=== PATIENT | female | born 1970 | race African-American/Black ===

== ENCOUNTER 2020-05-15 19:37 | Emergency (ER) | payer OTHER ==
[~2020-05-15] VITALS: Ht 149.9 cm; Wt 81.7 kg
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
[~2020-05-15 19:37] MED LIST: ALBUTEROL2.5 MG/0.5 INH; IBUPROFEN 600600 M1 PO; VENTOLIN HFA 1818 GM INH
[2020-05-15 20:33] LABS: ABSOLUTE NEUTROPHILS 3.5 thou/uL (1.4-8.2); BASOPHILS 0.8 % (0.0-2.0); EOSINOPHILS 4.1 % (0.0-3.0); HEMATOCRIT 42.3 % (37.0-47.0); HEMOGLOBIN 13.5 gm/dL (12.0-15.0); LYMPHOCYTES 31.7 % (24.0-44.0); MCH 29.8 pg (26.0-34.0); MCHC 32.1 g/dL (28.0-37.0); MCV 92.8 fL (80.0-100.0); MONOCYTES 5.1 % (1.0-8.0); PLATELET COUNT 269 thou/uL (150-400); POLYS 58.3 % (36.0-66.0); RBC 4.55 mil/uL (4.20-5.00); WBC 5.9 thou/uL (4.0-11.0)
[2020-05-15 20:40] LABS: ANION GAP 10 mmol/L (7-16); BUN 13 mg/dL (7-18); CALCIUM 8.9 mg/dL (8.5-10.1); CHLORIDE 106 mmol/L (98-107); CO2 25 mmol/L (21-32); CREATININE 1.1 mg/dL (0.6-1.0); GLUCOSE 112 mg/dL (74-106); POTASSIUM 3.5 mmol/L (3.5-5.1); SODIUM 141 mmol/L (136-145)
[2020-05-15 20:50] LABS: ALBUMIN 4.1 g/dL (3.4-5.0); SGOT 66 U/L (15-37); SGPT 50 U/L (14-59); TOTAL BILIRUBIN 0.4 mg/dL (0.2-1.0); TOTAL PROTEIN 8.1 g/dL (6.4-8.2); TROPONIN-I <0.06 ng/mL (<0.06)
[2020-05-15] MEDS ORDERED: MOBIC7.5 MG PO (23:13)
[2020-05-15] MEDS ORDERED: DOXYCYCLINE 10100 MG PO (23:13)
[2020-05-15] MEDS ORDERED: PREDNISONE 20 M20 MG PO (23:13)
[2020-05-15 23:21] VITALS: BP 128/79
--- NOTE | 2020-05-16 07:41 | EKG ---
[place] [address] [employer] [place] [address] ELECTROCARDIOGRAM REPORT Name: MARC AGUILAR [id number] Admission: 05/15/20 Attend Phys: Discharge: 05/15/20 Date of : 74 Report #: [id number] [facility] ED Test Date: 2020-05-15 Test Time: 20:21:22 Pat Name: MARC AGUILAR Department: Room: Gender: F Line Runner: JAIMIE : 1970 Requested By: Senia Madrigal Order Number: [id number] MD: Bhanu Paniagua Measurements Intervals [place] Rate: 105 P: 70 KS: 154 QRS: 54 QRSD: 109 T: -15 QT: 345 QTc: 457 Interpretive Statements Sinus tachycardia Multiple ventricular premature complexes Nonspecific ST and T wave abnormality Compared to ECG 09/05/2015 20:37:18 Ventricular premature complex(es) now present ST and T wave abnormality is new Electronically Signed On 05-16-2020 7:41:23 LICENSED OPTICAL DISPENSER by Bhanu Paniagua [email or web address] <ELECTRONICALLY SIGNED> By: Bhanu Paniagua MD, [facility] [id number] 20 20 Bhanu Paniagua MD, [facility] /EPI
== END 2020-05-15 23:41 | disposition home or self-care (01) ==
LOC: ER 19:37
PROVIDERS: Physician Assistant
DX: R07.89 Other chest pain (principal); J45.901 Unspecified asthma with (acute) exacerbation; Z79.899 Other long term (current) drug therapy; Z88.8 Allergy status to other drugs, medicaments and biological substances; Z91.018 Allergy to other foods; V49.9XXA Car occupant (driver) (passenger) injured in unspecified traffic accident, initial encounter; Y93.89 Activity, other specified; Y92.488 Other paved roadways as the place of occurrence of the external cause; Y99.8 Other external cause status

== ENCOUNTER 2021-06-19 19:34 | Emergency (ER) | payer OTHER ==
[~2021-06-19] VITALS: Ht 165.1 cm; Wt 99.8 kg
[~2021-06-19 19:34] MED LIST changes: +DOXYCYCLINE 10100 MG PO; +MOBIC7.5 MG PO; +PREDNISONE 20 M20 MG PO
== END 2021-06-19 23:48 | disposition home or self-care (01) ==
LOC: ER 19:34
DX: F10.929 Alcohol use, unspecified with intoxication, unspecified (principal); Z59.00 Homelessness unspecified; Z91.018 Allergy to other foods; Z88.8 Allergy status to other drugs, medicaments and biological substances